=== PATIENT | female | born 1960 | race Caucasian/White ===

== ENCOUNTER 2017-06-30 08:20 | Observation (INO) | payer OTHER ==
[~2017-06-30] VITALS: Ht 157.5 cm; Wt 55.1 kg
[~2017-06-30 08:20] MED LIST: CALC600T34 PO; ESTR42.5V PV; GELNIQUE TOP; MAGNESIUM; NEUR600T PO; WELC625T2 PO
[2017-06-30] MEDS ORDERED: METOPROLOL TARTRATE 25 MG TAB PO PRN (09:00)
[2017-06-30] MEDS ORDERED: INSULIN HUMAN REGULAR 1,000 UNITS/10 ML VIAL SQ PRN (09:00)
[2017-06-30] MEDS ORDERED: LACTATED RINGER'S 1000 ML IV PRN (09:00)
[2017-06-30] MEDS ORDERED: POVIDONE IODINE 5% (ANTISEPSIS KIT) 4 APPLICATIONS EACH NARE PRN (09:00)
[2017-06-30] MEDS ORDERED: SODIUM CHLORID 0.9% 500 ML IV PRN (09:00)
[2017-06-30] MEDS ORDERED: CHLORHEXIDINE GLUCONATE 2 % 1 PACK (2 CLOTHS) TOPICAL PRN (09:00)
[2017-06-30] MEDS ORDERED: MULTTAB67 PO (09:10)
[2017-06-30] MEDS ORDERED: CRAN250C3 PO (09:10)
[2017-06-30] MEDS ORDERED: VITA100T65 PO (09:10)
[2017-06-30] MEDS ORDERED: VITA250T3 PO (09:10)
[2017-06-30] MEDS ORDERED: ONDANSETRON HCL 4 MG/2 ML VIAL IV PUSH SCH (09:15)
[2017-06-30] MEDS ORDERED: VANCOMYCIN HCL 1000 MG ON-CALL/NS 250 ML IV SCH ×2 (09:45)
[2017-06-30 11:08] VITALS: BP 144/88; PULSE 80; RESP 14; TEMP 97.6; O2SAT 99
--- NOTE | 2017-06-30 11:08 | RADRPT ---
EXAM DATE/TIME: 06/30/2017 10:30 [facility] COMPARISON: No previous studies available for comparison. INDICATIONS : Left breast cancer. DOSE: 1.0 mCi Tc99m Sulfur Colloid INJECTION SITE: Left Breast MEDICAL HISTORY : Carcinoma, breast. SURGICAL HISTORY : Hysterectomy. ENCOUNTER: Initial ACUITY: 1 month PAIN SCALE: 2/10 LOCATION: Left Breast. TECHNIQUE: Injection(s) of sulfur colloid was performed under sonographic guidance. Static imaging was obtained .. FINDINGS: There is activity identified at the injection sites without obvious sentinel node visualization. CONCLUSION: Lymphoscintigraphy as above. Shade Koch MD on June 30, 2017 at 11:06 Board Certified Radiologist. This report was verified electronically.
--- NOTE | 2017-06-30 11:40 | RADRPT ---
EXAM DATE/TIME: 06/30/2017 10:09 [facility] COMPARISON: No previous studies available for comparison. EXTERNAL COMPARISON : MG MAMMOGRAM-LEFT, April 28, 2017MR GUIDED BREAST BIOPSY- RIGHT, APRIL 28, 2017, TLI, MG MAMMOGRAM W/TO MOSYNTHESIS, MARCH 24, 2017, MG MAMMOGRAM POST BIOPSY, MARCH 06, 2017, OTHER, MG STEREOTACTIC BREAST BI OPSY March, OTHER, MG MAMMOGRAM LEFT, FEBRUARY 05, 2017, OTHER, MG SCREENING MAMMOGRAM, DECEMBER 26 017 INDICATIONS : Left breast cancer. MEDICAL HISTORY : Myocardial infarction. Left breast cancer. SURGICAL HISTORY : Hysterectomy. Left oophrectomy. [place] teeth extracted. ENCOUNTER: Initial ACUITY: 4-6 months PAIN SCORE: 0/10 LOCATION: Left breast. AREA EVALUATED: Left breast, mid quadrant; at 12 o'clock Radiopharmaceutical dose: 1.0 Tc99m [place] colloid FINDINGS: Breast ultrasound was performed prior to lymphoscintigraphy. The clip was not definitively visualize d however injection was performed at the expected location of the tissue marker with a vague area of shadowing at 12: 00 1-2 cm from the nipple. CONCLUSION: Lymphoscintigraphy was performed as above. Shade Koch MD on June 30, 2017 at 11:38 Board Certified Radiologist. This report was verified electronically.
[2017-06-30] MEDS ORDERED: ePHEDrine/NS 25 MG/5 ML SYR IV ONE (12:00)
[2017-06-30] MEDS ORDERED: LIDOCAINE HCL 1% PF 5 ML AMPULE OTHER ONE (12:00)
[2017-06-30] MEDS ORDERED: MIDAZOLAM HCL 2 MG/2 ML VIAL IV ONE (12:00)
[2017-06-30] MEDS ORDERED: GLYCOPYRROLATE 1 MG/5 ML SYRINGE IV PUSH ONE (12:00)
[2017-06-30] MEDS ORDERED: PROPOFOL 200 MG/20 ML AMP IV ONE (12:00)
[2017-06-30] MEDS ORDERED: DEXAMETHASONE SOD PHOS 4 MG/ML VIAL IV ONE (12:00)
[2017-06-30] MEDS ORDERED: ROCURONIUM INJ 50 MG/5 ML SYRINGE IV PUSH ONE (12:00)
[2017-06-30] MEDS ORDERED: ONDANSETRON HCL 4 MG/2 ML VIAL IV PUSH ONE (12:00)
[2017-06-30] MEDS ORDERED: NEOSTIGMINE 3 MG/3 ML SYR IV ONE (12:00)
[2017-06-30] MEDS ORDERED: VECURONIUM BROMIDE 20 MG VIAL IV ONE (12:00)
[2017-06-30] MEDS ORDERED: BUPIVACAINE/EPINEPHRINE 0.5% 50 ML VIAL ONE (12:28)
[2017-06-30] MEDS ORDERED: BUPIVACAINE HCL PF 0.25% 30 ML VIAL ONE (12:29)
[2017-06-30] MEDS ORDERED: SODIUM CHLORIDE 0.9% 20 ML VIAL ONE (12:29)
[2017-06-30] MEDS ORDERED: BUPIVACAINE HCL PF 0.5% 30 ML VIAL ONE (12:54)
[2017-06-30] MEDS ORDERED: FAMOTIDINE 20 MG/2 ML VIAL ONE (13:26)
[2017-06-30] MEDS ORDERED: ACETAMINOPHEN 1000 MG/100 ML 100 ML IV ONE (13:26)
[2017-06-30] MEDS ORDERED: GENTAMICIN SULFATE 80 MG/2 ML VIAL ONE (14:53)
[2017-06-30] MEDS ORDERED: ISOSULFAN BLUE 50 MG/5 ML VIAL SQ ONE (15:45)
[2017-06-30] MEDS ORDERED: *morphine SULFATE 8 MG/ML PERIprocedure ONLY ONE ×2 (17:00→17:19)
[2017-06-30] MEDS ORDERED: HYDROmorphone HCL PCA 6 MG/30 ML IV ONE (17:06)
[2017-06-30] MEDS ORDERED: NALOXONE HCL 0.4 MG/ML AMP IV PUSH PRN (17:45)
[2017-06-30] MEDS ORDERED: DO NOT ADM ANY ANTICOAGULANT DRUGS PRN (17:45)
[2017-06-30] MEDS ORDERED: HYDROmorphone HCL PCA 6 MG/30 ML IV SCH (17:45)
[2017-06-30 18:00] VITALS: BP 163/73; PULSE 87; RESP 20; TEMP 97; O2SAT 95
[2017-06-30] MEDS: LACTATED RINGER'S 1000 ML INJ 1,000 ML IV SCH (18:08)
[2017-06-30] MEDS: CLINDAMYCIN 600 MG/NS 100 ML IV SCH ×2 (18:48)
[2017-06-30 20:00] VITALS: BP 139/75; PULSE 86; RESP 18; TEMP 97.7; O2SAT 98
[2017-06-30 20:44] VITALS: RESP 18
[2017-06-30] MEDS: PCA - TOTAL MG DILAUDID DELIVERED PER SHIFT SCH (21:02)
[2017-06-30] MEDS: ONDANSETRON HCL 4 MG/2 ML VIAL IV PUSH PRN (22:22)
[2017-07-01] VITALS (7 sets, daily range): BP systolic 124–195; BP diastolic 71–87; PULSE 91–98; RESP 16–20; TEMP 97–98.9; O2SAT 95–100
[2017-07-01] MEDS: CLINDAMYCIN 600 MG/NS 100 ML IV SCH ×6 (00:31→12:14)
[2017-07-01] MEDS: LACTATED RINGER'S 1000 ML INJ 1,000 ML IV SCH ×2 (04:43→17:34)
[2017-07-01] MEDS: PCA - TOTAL MG DILAUDID DELIVERED PER SHIFT SCH ×3 (04:45→22:00)
[2017-07-01] MEDS: ONDANSETRON HCL 4 MG/2 ML VIAL IV PUSH PRN (07:55)
--- NOTE | 2017-07-01 07:56 | MP ---
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 PROCEDURE PERFORMED Skin sparing left mastectomy with left axillary sentinel lymph node biopsy and immediate tissue investigations manager reconstruction with AlloMax. SURGEON Luz Maria Shha MD and Mario Womack MD ANESTHESIA General via endotracheal INDICATION The patient is a 56-year-old female noted to have an area of ductal carcinoma in situ of the left breast. MRI revealed a separate area and this was biopsied and also found to be ductal carcinoma in situ. Because of multifocal disease, she opted for mastectomy with immediate reconstruction and now presents for the procedure. FINDINGS AT THE TIME OF SURGERY Moderate fibrocystic density was identified in the left breast. There was no gross evidence of malignant disease. Three sentinel lymph nodes were identified. #1 was 1+ blue and had a count of 2850 and #2 had a count of 63 and was not blue. #3 had a count of 672 and was not blue. Touch prep was not performed. PROCEDURE PERFORMED After informed consent was obtained and site verification was performed, the patient was brought to the major operating room after she went to the radiology suite where she underwent peritumoral radionuclide injection. General endotracheal anesthesia was induced and she received a single dose of IV vancomycin due to penicillin allergy. Sequential compression hose were placed. 3 cc of half-strength Lymphazurin were injected in the subareolar left breast and a 5-minute massage was performed. An inframammary crease incision was marked out and 100 cc of tumescent solution mixed with 30 cc of Marcaine with epinephrine were then infiltrated circumferentially around the breast in the plane between the anterior breast fascia and subcutaneous fat. Sharp dissection was performed in the same plane medially and laterally up to the level of the nipple. Electrocautery was then used to dissect the breast tissue away from the pectoralis muscle including the pectoralis fascia with the breast specimen and this was performed up to the level of the clavicle. The nipple was circumferentially dissected free from surrounding structures using sharp dissection and this was included with the breast specimen. Further sharp dissection was then performed superiorly in the medial and lateral planes in between the subcutaneous fat and anterior breast fascia. The breast was then amputated in the axilla and oriented with skin anterior, one short suture superiorly, and one long suture laterally. The specimen was weighed and sent for permanent pathologic evaluation. Some lateral tissue was sharply re-excised and sent as a separate permanent lateral margin specimen. A separate incision was then made at the inferior aspect of the left axillary hairline using electrocautery and sharp dissection until the clavipectoral fascia was divided and the level I axilla was entered. One sentinel lymph node was identified immediately in mid level I and this was circumferentially dissected free from surrounding structures using the harmonic scalpel with the count as noted. A separate more medial specimen was circumferentially dissected free from surrounding structures and this node had the count of 62. A very high level one lymph node near the junction of the pectoralis major and minor was then circumferentially dissected free from surrounding structures using the harmonic scalpel and this lymph node had a count of 672. Each node was sent separately as a permanent specimen and touch prep was not performed. Good hemostasis was noted in the axilla and in the breast along the chest wall and reconstruction was then performed which will be recorded on a separate dictation by Dr. Womack. MD JONE Cook/BRIAN /3:41 PM /7:36 AM
--- NOTE | 2017-07-01 08:10 | MP ---
cc: DEBBY BUTCHER M.D. DATE OF SURGERY 06/30/2017 PREOPERATIVE DIAGNOSIS Left breast cancer, patient for bilateral mastectomies. POSTOPERATIVE DIAGNOSIS Left breast cancer, patient for bilateral mastectomies. OPERATION 1. Left mastectomy with lymph node sampling by Dr. Omer 2. Right simple nipple sparing mastectomy Dr. Butcher 3. Bilateral breast reconstruction with AlloMax and tissue rewrite editor Dr. Butcher. SURGEON Dr. Omer and Dr. Butcher ANESTHESIA General INDICATIONS This 56-year-old white female was diagnosed with left breast ductal carcinoma in situ. She elected to go with bilateral mastectomies. The right side does not have any clinical disease. Mastectomy on the left was performed by Dr. Omer and it was an areolar sparing mastectomy. It will be dictated by her. The right side was a nipple sparing mastectomy after confirming the same with Dr. Omer from a mastectomy standpoint. The patient has undergone a detailed explanation of the procedure including pros, cons, risks and complication and immediate perioperative and long-term issues in detail. She is willing to proceed with the surgery. She initially had questions about possibly doing a one-stage versus two-stage reconstruction. Eventually she agreed to the two-stage reconstruction for better placement of the final implant in the long run. PROCEDURE The patient was brought to the operating room, was given supine position, anesthesia was started. A prep and drape was done. IV antibiotic had been given. Time-out was called and completed. The procedure was started on both sides simultaneously. The inframammary crease incisions were used. On the right side, the breast flap was developed all the way to the nipple and then the area of the breast tissue and ducts immediately under the nipple was grasped with an Allis forceps and was biopsied and sent for frozen section. The dissection was continued to complete the flap elevation to the upper half of the chest as well. The breast then was lifted from the pectoralis and chest wall fascia and mastectomy was completed removing the entire breast tissue. The specimen was suture marked superiorly and also a nipple short suture to indicate the location of the nipple base itself. The frozen section report issued indicated no obvious malignancy in the sample sent. Hemostasis was excellent. Also, the tumescent solution of Marcaine and saline has been used to help with the flap dissection. The left side mastectomy was also completed by Dr. Omer and the lymph node sampling was completed and lymph node access in the axillary incision was closed by Dr. Omer as well. The surgery was continued by myself from this point on. Both side subpectoral pockets were created. The inferior attachment of the pectoralis major muscle was released towards the medial end and AlloMax 8 x 16 grafts were hydrated and treated with gentamicin solution and placed one on each side smooth side towards the rewrite editor. The grafts were secured in the inframammary fold location about a centimeter above the inframammary fold and tacked at the anterior axillary line level as well. The expanders used were [employer] tissue rewrite editor catalogue number [id number]. The nominal capacity 300 cc. The serial number [id number] on the patient's right side, serial number [id number] on the patient's left side. The expanders were evacuated of all the air. The filling ports were oriented towards the 12 o'clock position and they were placed in the subpectoral location and the AlloMax was wrapped over the lower pole. The edge of the AlloMax was sutured to the free edge of the pectoralis major muscle as well. Ronald-Wilkins drains were inserted on both side and brought around in the subcutaneous flap location. Closure of the incisions was done with 2-0 and 3-0 Vicryl's and 4-0 Prolene subcuticular running sutures. On the left side, the nipple defect was also sutured in two layers. The expanders were filled with sterile saline using a three-way no-touch technique. 200 cc was injected on each side. All the area where cleaned and dried and a sterile dressing were applied. The patient remained stable through the procedure. Intraoperative blood loss less than 75 cc total. The tissue weight right side was 350 grams and left-sided 325 grams. No complications. signed, not fully reviewed MD JAMES Coughlin/BRIAN /4:47 PM /7:53 AM [facility]
--- NOTE | 2017-07-01 09:06 | HHI.PR ---
Subjective Subjective Notes Some nausea but tolerating liquids. Requiring GREEN MARKETER for pain control. Objective Vitals/I&O Vital Signs Date Time Temp Pulse Resp B/P (MAP) Pulse Ox O2 Delivery O2 Flow Rate FiO2 07/01/17 08:01 16 07/01/17 08:00 97.8 96 124/71 (88) 95 06/30/17 17:45 Nasal Cannula 2 Drain output 65cc left, 40 cc right. Narrative Exam Right chest wall flaps viable and nipple viable. No erythema or infection. Left central area with blue discoloration which is likely related to lymphazurin. No infection. A/P Problem List: (1) Ductal carcinoma in situ (DCIS) of left breast ICD Codes: D05.12 - Intraductal carcinoma in situ of left breast Status: Acute Assessment and Plan Still requiring IV analgesics. Encourage ambulation and oral analgesics. Anticipate discharge tomorrow. Luz Maria Omer MD Jul 01, 2017 09:06
--- NOTE | 2017-07-01 17:27 | PD.PLAS.PN ---
Subjective Remarks Patient doing well post op - pain is now under control with the meds was able to eat a little. Running high BP 190 systolic this evening - has never been on meds for bp Right side Breast - flaps look good No hematoma. EUGENIE drainage serosanguineous Left side - no hematoma. Flap center has a blue purple area of approx 2 cm x 1.8 cm on the upper outer aspect of the areola - may possibly demarcate over the next two to three days - to watch closely. May need excision and reclosure of the flap. The bankruptcy legal assistant volume is ok, no pressure on the flap. Also the EUGENIE drain is about 50 cc serosanguineous Will use temporary Vasotec - she can be referred to Dr. Caceres if needed in the morning. Or to the [facility] hospitalist austyn if the bp is not controlled. . Vital Signs Date Time Temp Pulse Resp B/P (MAP) Pulse Ox O2 Delivery O2 Flow Rate FiO2 07/01/17 16:00 98.8 91 20 195/87 (123) 97 07/01/17 14:00 16 07/01/17 12:00 97.0 92 19 190/83 (118) 95 07/01/17 08:01 16 07/01/17 08:00 97.8 96 20 124/71 (88) 95 07/01/17 04:45 19 07/01/17 04:00 98.9 98 18 148/73 (98) 95 07/01/17 00:00 97.5 95 18 163/81 (108) 100 06/30/17 21:02 18 06/30/17 20:44 18 06/30/17 20:00 97.7 86 18 139/75 (96) 98 06/30/17 18:00 97.0 87 20 163/73 (103) 95 06/30/17 17:45 73 13 161/70 (100) 100 Nasal Cannula 2 06/30/17 17:30 64 13 158/68 (98) 100 Nasal Cannula 2 I/O 06/30/17 06/30/17 06/30/17 07/01/17 07/01/17 07/01/17 07:00 15:00 23:00 07:00 15:00 23:00 Intake Total 1400 ml 1008 ml 224 ml Output Total 145 ml 260 ml Balance 1255 ml 748 ml 224 ml Intake Oral 240 ml 120 ml IV Total 768 ml 104 ml Other 1400 ml Output Urine Total 200 ml Drainage Total 45 ml 60 ml Estimated Blood Loss 100 ml # Bowel Movements 0 Mario Womack MD Jul 01, 2017 17:27
[2017-07-01] MEDS: ENALAPRILAT 1.25 MG/ML VIAL IV PUSH PRN (17:35)
[2017-07-01] MEDS: oxyCODONE/ACETAMINOPHEN 5 MG/325 MG TAB PO PRN ×2 (18:14→22:26)
[2017-07-02] VITALS: BP 167/72; PULSE 90; RESP 18; TEMP 98.5; O2SAT 94
[2017-07-02 04:00] VITALS: BP 170/78; PULSE 74; RESP 16; TEMP 98.5; O2SAT 95
[2017-07-02] MEDS: oxyCODONE/ACETAMINOPHEN 5 MG/325 MG TAB PO PRN ×3 (04:45→15:20)
[2017-07-02] MEDS: LACTATED RINGER'S 1000 ML INJ 1,000 ML IV SCH ×2 (04:45)
[2017-07-02] MEDS: PCA - TOTAL MG DILAUDID DELIVERED PER SHIFT SCH ×2 (04:49→12:33)
[2017-07-02 08:00] VITALS: BP 165/72; PULSE 95; RESP 20; TEMP 97.9; O2SAT 95
[2017-07-02] MEDS: ENALAPRILAT 1.25 MG/ML VIAL IV PUSH PRN (08:33)
[2017-07-02 09:47] VITALS: BP 142/65
[2017-07-02 12:00] VITALS: BP 135/71; PULSE 100; RESP 19; TEMP 96.9; O2SAT 95
[2017-07-02 16:00] VITALS: BP 136/64; PULSE 97; RESP 18; TEMP 97.3; O2SAT 98
--- NOTE | 2017-07-02 16:09 | HHI.PR ---
Subjective Subjective Notes Pain wellcontrolled on oral analgesics. Tolerating diet. Objective Vitals/I&O Vital Signs Date Time Temp Pulse Resp B/P (MAP) Pulse Ox O2 Delivery O2 Flow Rate FiO2 07/02/17 12:00 96.9 100 19 135/71 (92) 95 06/30/17 17:45 Nasal Cannula 2 Left drain 30cc, Right drain 30cc. Narrative Exam Right chest wall flaps viable and nipple viable. No erythema or infection. Left central area with 2 cm area lateral central ischemia. Dry and noninfected. A/P Problem List: (1) Ductal carcinoma in situ (DCIS) of left breast ICD Codes: D05.12 - Intraductal carcinoma in situ of left breast Status: Acute Assessment and Plan Doing well. D/C home. Followup with Dr. Womack Friday. Discharge Planning Discharge home today. Luz Maria Omer MD Jul 02, 2017 16:09
== END 2017-07-02 16:50 | disposition home or self-care (01) ==
LOC: HRAD 08:20 → N07B 18:10
PROVIDERS: ADMIT Surgery; ATTEND Surgery
DX: D05.12 Intraductal carcinoma in situ of left breast (principal)
CPT/HCPCS: 00402; 15273; 15274; 19303; 19357; 38525; 38900; 76642; 78195; 88305; 88307; 88309; 88331; 96361; 96374; 96375; 96376; A9541; C1789; G0378; J0131; J1100; J1170; J1580; J2250; J2270; J2405; J2710; J3010; J3370; J7050; J7120; Q4100; Q9968

== ENCOUNTER 2017-07-22 17:15 | Inpatient (IN) | payer OTHER ==
[~2017-07-22] VITALS: Ht 158.8 cm; Wt 56.5 kg
[~2017-07-22 17:15] MED LIST changes: +BACITRACIN TOP OINT 15 GM TUBE ONE; +BUPIVACAINE/EPINEPHRINE 0.5% 50 ML VIAL ONE; -CALC600T34 PO; +CRAN250C3 PO; -ESTR42.5V PV; +GLYCOPYRROLATE 1 MG/5 ML SYRINGE IV PUSH ONE; +LIDOCAINE 1%/EPINEPHrine 1:100,000 SOLN 50 ML VIAL ONE; +LIDOCAINE HCL 1% PF 5 ML AMPULE OTHER ONE; +MIDAZOLAM HCL 2 MG/2 ML VIAL IV ONE; +MULTTAB67 PO; +NEOSTIGMINE 3 MG/3 ML SYR IV ONE; -NEUR600T PO; +ONDANSETRON HCL 4 MG/2 ML VIAL IV PUSH ONE; +PHENYLEPH/NS 1000 MCG/10 ML SYR IV ONE; +PROPOFOL 200 MG/20 ML AMP IV ONE; +ROCURONIUM INJ 50 MG/5 ML SYRINGE IV PUSH ONE; +SODIUM BICARBONATE 8.4% INJ 0 ML ONE; +VITA100T65 PO; +VITA250T3 PO; -WELC625T2 PO
[2017-07-22] MEDS ORDERED: METOPROLOL TARTRATE 25 MG TAB PO PRN (17:45)
[2017-07-22] MEDS ORDERED: LACTATED RINGER'S 1000 ML IV PRN (17:45)
[2017-07-22] MEDS ORDERED: CHLORHEXIDINE GLUCONATE 2 % 1 PACK (2 CLOTHS) TOPICAL PRN (17:45)
[2017-07-22] MEDS ORDERED: SODIUM CHLORID 0.9% 500 ML IV PRN (17:45)
[2017-07-22] MEDS ORDERED: POVIDONE IODINE 5% (ANTISEPSIS KIT) 4 APPLICATIONS EACH NARE PRN (17:45)
[2017-07-22] MEDS ORDERED: INSULIN HUMAN REGULAR 1,000 UNITS/10 ML VIAL SQ PRN (17:45)
[2017-07-22] MEDS ORDERED: CEPH-460 PO (17:49)
[2017-07-22] MEDS ORDERED: FLAX10002 (17:49)
[2017-07-22] MEDS ORDERED: BIOT10TA PO (17:49)
[2017-07-22] MEDS ORDERED: LIDO1CRE31 TOPICAL (17:49)
[2017-07-22] MEDS ORDERED: COQ-30CA2 (17:49)
[2017-07-22] MEDS ORDERED: VENTAER INH (17:49)
[2017-07-22] MEDS ORDERED: HYDR-3516 PO (17:49)
[2017-07-22] MEDS ORDERED: FIBE625T10 PO (17:49)
[2017-07-22] MEDS ORDERED: ENZY1TAB2 (17:49)
[2017-07-22 18:13] LABS: AUTOMATED NEUTROPHIL # 4.4 TH/MM3 (1.8-7.7); BASOPHIL # 0.1 TH/MM3 (0-0.2); BASOPHIL % 1.2 % (0.0-2.0); EOSINOPHIL # 0.1 TH/MM3 (0-0.4); EOSINOPHIL % 1.8 % (0.0-4.0); HEMATOCRIT 32.3 % (35.0-46.0); HEMO FLAGS DIFF FINAL; LYMPH % 29.2 % (9.0-44.0); LYMPHOCYTE # 2.1 TH/MM3 (1.0-4.8); MEAN CELL VOLUME 76.8 FL (80.0-100.0); MEAN CORPUSCULAR HEMOGLOBIN 26.3 PG (27.0-34.0); MEAN CORPUSCULAR HGB CONC 34.2 % (32.0-36.0); MONO % 5.1 % (0.0-8.0); NEUT % 62.7 % (16.0-70.0); PLATELET COUNT 292 TH/MM3 (150-450); RED CELL DISTRIBUTION WIDTH 14.1 % (11.6-17.2); WHITE BLOOD COUNT 7.1 TH/MM3 (4.0-11.0)
[2017-07-22] MEDS ORDERED: GENTAMICIN SULFATE 80 MG/2 ML VIAL ONE (19:04)
[2017-07-22] MEDS ORDERED: VANCOMYCIN HCL 1000 MG VIAL ONE (19:04)
[2017-07-22] MEDS ORDERED: SUGAMMADEX SODIUM 200 MG/2 ML VIAL IV PUSH ONE ×2 (19:46)
[2017-07-22] MEDS ORDERED: *morphine SULFATE 8 MG/ML PERIprocedure ONLY ONE (20:06)
[2017-07-22] MEDS ORDERED: DO NOT ADM ANY ANTICOAGULANT DRUGS PRN (20:15)
[2017-07-22] MEDS ORDERED: ALBUTEROL SULFATE 90 MCG/ACT HFA 8 GM INHALER INH PRN (20:30)
[2017-07-22] MEDS ORDERED: LACTATED RINGER'S 1000 ML INJ 1,000 ML IV SCH (21:00)
--- NOTE | 2017-07-22 21:04 | MP ---
cc: DEBBY BUTCHER M.D. DATE OF SURGERY 07/22/2017 PREOPERATIVE DIAGNOSIS Right breast seroma with small necrotic flap. POSTOPERATIVE DIAGNOSIS Right breast seroma with small necrotic flap. OPERATION Exploration right breast drainage of approximately 60 mL. Seroma excision and reclosure of the necrotic flap and the lower flap. SURGEON Dr. Butcher ANESTHESIA General INDICATIONS A 56-year-old white female who has undergone bilateral mastectomies and tissue interlocker maintainer and AlloMax reconstruction in the last several weeks. She was noted to have small areas of patchy necrosis of superficial skin on the left breast and also near the inframammary incision on the right breast and was being watched for healing. While awaiting the expansion in the last four or five days she has noted increasing swelling on the right breast and some redness, particularly on the lower part extending slightly towards the areola. She has been mostly afebrile with a temperature of 99.4 yesterday at home. She had been placed on oral antibiotic by Dr. Omer earlier last week. The patient otherwise is feeling normal. She underwent discussion about draining the seroma and putting in a drain and watching it with IV antibiotic coverage for a few days while the culture report comes through. It may be possible that the interlocker maintainer may need to be removed and the AlloMax to be discarded as well in case if the culture comes back positive or if she has any clinical indications of increasing infection on the right side including local changes or WBC count change or fever. The patient has some mixed ideas about what she wants to do with the left side in case if the right side is being removed. She was given possible options of doing a right side reconstruction alone at a second stage if the interlocker maintainer needed to be removed while leaving the left side interlocker maintainer intact and using it to expand the soft tissue on the left in the meantime - or if she wished to remove both sides and do nothing or see if she wished to remove both sides, let it heal and start all over again on both sides. The possible pros and cons were also discussed. She will be given a second chance to decide a few days down the line while the right breast gets decided. PROCEDURE DETAILS The patient was brought to the operating room, was given supine position. Anesthesia was started. Prep and drape was done. A time-out was called and completed. The IV antibiotic had been held on purpose. The Prolene suture on the right breast was removed. The area of necrosis is noted to be actually slightly above the incision line itself, leaving a 2-3 mm clear healing skin on the incision line. This area was gently spread open and the Vicryl sutures were removed. A liquid yellowish seroma approximately 60 mL was encountered. A few cc were allowed to escape and a culture sample was taken from the seroma and the cavity at the same time. The incision was opened up going on either side of the necrotic area for a total length of 2 inches. The seroma was easily evacuated with gentle pressure. No mucus or necrotic tissue was encountered. The area of the skin flap under the black skin did not show any fatty necrosis either. The cavity was copiously irrigated clean with gentamicin solution. She was also started on the IV Vancomycin at the same time. A Ronald-Wilkins drain was inserted through a separate clean stab incision and secured to the skin. The flap and incision line was closed in two layers with Vicryl and Prolene. The patient remained stable through the procedure. Intraoperative blood loss less than 2 mL. No complication. It was also noted that the upper part of the breast flap had become well adherent to the pectoralis major muscle and there was no seroma up on the top. The AlloMax also was in good condition and no seroma was noted between the AlloMax and the interlocker maintainer itself. The interlocker maintainer could be easily felt through the AlloMax. signed, not fully reviewed MD JAMES Coughlin/ZION /7:51 PM /8:29 PM [facility]
[2017-07-22 21:40] VITALS: BP 127/69; PULSE 81; RESP 18; TEMP 98.6; O2SAT 99
[2017-07-22] MEDS: HYDROmorphone HCL PF 0.5 MG/0.5 ML SYRINGE IV PRN (22:31)
[2017-07-22] MEDS: LACTATED RINGER'S 1000 ML INJ 1,000 ML IV SCH (22:31)
[2017-07-22] MEDS: CLINDAMYCIN 600 MG/NS 100 ML IV SCH ×2 (22:58)
[2017-07-23] VITALS (7 sets, daily range): BP systolic 108–148; BP diastolic 57–80; PULSE 78–89; RESP 16–18; TEMP 97.9–98.9; O2SAT 95–99
[2017-07-23] MEDS: HYDROmorphone HCL PF 0.5 MG/0.5 ML SYRINGE IV PRN ×2 (03:59→09:27)
[2017-07-23] MEDS: LACTATED RINGER'S 1000 ML INJ 1,000 ML IV SCH ×2 (05:29→17:00)
[2017-07-23] MEDS: CLINDAMYCIN 600 MG/NS 100 ML IV SCH ×6 (05:29→21:15)
--- NOTE | 2017-07-23 13:05 | PD.PLAS.PN ---
Subjective Remarks Patein feeling much better. Minimal pain, no fever, not feeling tired Right breast soft, flap color nearly normal - most of the redness is gone Not warm Drain - clearing up a bit. Gram stain no bacteria Awaiting ID consult. Plan: Wait till culture reports received - possible discharge tomorrow gil or next am. Vital Signs Date Time Temp Pulse Resp B/P (MAP) Pulse Ox O2 Delivery O2 Flow Rate FiO2 07/23/17 08:00 97.9 89 17 108/66 (80) 97 07/23/17 04:00 98.6 87 18 118/68 (85) 97 07/23/17 00:00 97.9 82 18 124/74 (91) 97 07/22/17 21:40 98.6 81 18 127/69 (88) 99 07/22/17 21:15 80 15 135/65 (88) 98 Room Air 07/22/17 20:45 76 13 135/65 (88) 99 Room Air 07/22/17 20:30 81 19 141/64 (89) 99 Room Air 07/22/17 20:15 91 24 149/55 (86) 94 Room Air 07/22/17 19:57 97.7 98 24 153/93 (113) 100 Room Air 07/22/17 18:45 Room Air 07/22/17 18:45 75 20 171/86 (114) 95 07/22/17 17:54 98.4 92 18 154/86 (108) 99 I/O 07/22/17 07/22/17 07/22/17 07/23/17 07/23/17 07/23/17 07:00 15:00 23:00 07:00 15:00 23:00 Intake Total 1000 ml 1928 ml Output Total 25 ml 30 ml 1200 ml Balance 975 ml 1898 ml -1200 ml Intake Oral 720 ml IV Total 1208 ml Other 1000 ml Output Urine Total 1200 ml Drainage Total 30 ml Estimated Blood Loss 25 ml # Voids 2 Laboratory Tests Test 07/22/17 18:00 White Blood Count 7.1 Red Blood Count 4.20 Hemoglobin 11.1 Hematocrit 32.3 Mean Corpuscular Volume 76.8 Mean Corpuscular Hemoglobin 26.3 Mean Corpuscular Hemoglobin Concent 34.2 Red Cell Distribution Width 14.1 Platelet Count 292 Mean Platelet Volume 9.2 Neutrophils (%) (Auto) 62.7 Lymphocytes (%) (Auto) 29.2 Monocytes (%) (Auto) 5.1 Eosinophils (%) (Auto) 1.8 Basophils (%) (Auto) 1.2 Neutrophils # (Auto) 4.4 Lymphocytes # (Auto) 2.1 Monocytes # (Auto) 0.4 Eosinophils # (Auto) 0.1 Basophils # (Auto) 0.1 CBC Comment DIFF FINAL Differential Comment Date/Time Source Procedure Growth Status 07/22/17 19:30 Wound Breast Fungal Smear - Final NO FUNGAL ELEMENTS SEEN. Resulted 07/22/17 19:30 Wound Breast Fungal Culture Pending Resulted Result Diagram: 07/22/17 1800 Mario Womack MD Jul 23, 2017 13:05
--- NOTE | 2017-07-23 14:06 | EKG ---
Date Performed: 07/22/2017 Time Performed: 18:00:43 PTAGE: 56 years EKG: Sinus rhythm INCOMPLETE RIGHT BUNDLE BRANCH BLOCK BORDERLINE ECG PREVIOUS TRACING : 07/23/2010 15.00 DOCTOR: Andrés Francis Interpretating Date/Time 07/23/2017 13:58:04
--- NOTE | 2017-07-23 14:09 | PD.CONS ---
History of Present Illness Service infectious disease Consult Requested By Dr. Womack Reason for Consult Evaluate patient with swelling on the right breast Primary Care Physician Non-Staff Diagnoses: History of Present Illness Patient seen and examined. Records reviewed. Patient is a 56-year-old female, diagnosed to have breast cancer, underwent definitive surgery the end of June, admitted to the hospital for further evaluation of swelling on her right breast. The original breast cancer was on the left side, they did surgery on both breast, and placed a tissue chief building inspector. When she was discharged she had drains in both breasts. The drain was removed after about 7-10 days. About a week after the surgery, the patient was placed on Keflex by the surgeon. She has been taking Keflex since up until the time of admission. The drains were removed, patient has had intermittent drainage from the drain sites especially on the right side. A week prior to admission, she developed swelling and redness on her right breast. It was being monitored closely, and it was decided to bring the patient for further evaluation and treatment. She had one episode of low-grade temps during this time. Since admission she has not been febrile. White count is normal. Patient underwent drainage of seroma yesterday. Gram stain of the fluid did not show any organism , and culture is negative after 24 hours. Infectious disease consultation has been requested to evaluate the patient. Patient received Vanco perioperatively, and she is currently on IV clindamycin. Review of Systems Constitutional: DENIES: Fever, Chills, Change in appetite, Night Sweats Eyes: DENIES: Eye pain Ears, nose, mouth, throat: DENIES: Nasal discharge, Oral lesions, Throat pain, Ear Pain, Running Nose, Sinus Pain Respiratory: DENIES: Cough, Shortness of breath Cardiovascular: DENIES: Chest pain, Palpitations, Dyspnea on Exertion Gastrointestinal: DENIES: Abdominal pain, Constipation, Diarrhea, Nausea, Vomiting, Difficulty Swallowing Genitourinary: DENIES: Urinary frequency, Dysuria Musculoskeletal: DENIES: Joint pain, Muscle aches, Joint Swelling Integumentary: COMPLAINS OF: Breast skin changes, DENIES: Nipple discharge Hematologic/lymphatic: COMPLAINS OF: Bruising Immunologic/allergic: DENIES: Urticaria Neurologic: DENIES: Localized weakness Psychiatric: DENIES: Hallucinations Past Family Social History Allergies: Coded Allergies: amoxicillin (Unverified Allergy, Severe, RASH, HIVES, 06/30/17) azithromycin (Unverified Allergy, Severe, ITCHING, RASH, 06/30/17) Sulfa (Sulfonamide Antibiotics) (Unverified Adverse Reaction, Mild, LIGHTHEADED, 07/22/17) Past Medical History 2 para 2 Breast cancer left Cataracts Osteoporosis CAD Past Surgical History Hysterectomy and salpingo-oophorectomy Carpal tunnel release Mastectomy and placement of a tissue chief building inspector Reported Medications I attest that I obtained, updated or reviewed the home and current medications. Reported Meds & Active Scripts Active Reported Ventolin Hfa 18 GM Inh (Albuterol Sulfate) 90 Mcg/Act Aer 1 Puff INH Q4H PRN Lidopril Topical (Lidocaine-Prilocaine Topical) 2.5-2.5 % Cream 1 Applic TOPICAL BID PRN Hydrocodone-Acetaminophen 5-325 mg Tab 1 Tab PO Q4H PRN Flax Seed Oil 1000 mg (Flaxseed (Linseed)) 1,000 Mg Cap Fiber (Calcium Polycarbophil) 625 Mg Tab 625 Mg PO PRN Digestive Enzyme (Enzymes,Digestive) 1 Each Tablet Coq-10 (Coenzyme Q10 (Ubidecarenone)) 30 Mg Cap 10 DAILY Keflex (Cephalexin) 500 Mg Capsule 500 Mg PO QID Biotin 10 Mg Tab 10 Mg PO DAILY Cranberry (Cranberry Fruit Extract) 250 Mg Capsule 250 Mg PO DAILY Vitamin E 100 Unit Tab 100 Units PO DAILY Vitamin C (Ascorbic Acid) 250 Mg Tab 250 Mg PO DAILY Multiple Vitamin 1 Tab 1 Tab PO DAILY [Magnesium] BID Active Ordered Medications Clindamycin IV Albuterol prn Dilaudid prn INsulin sliding scale Lopressor prn Percocet prn Family History Noncontributory to current ID problem Social History No smoking No alcohol abuse No illicit drugs Physical Exam Vital Signs Vital Signs Date Time Temp Pulse Resp B/P (MAP) Pulse Ox O2 Delivery O2 Flow Rate FiO2 07/23/17 12:00 98.0 87 16 109/57 (74) 96 07/23/17 08:00 97.9 89 17 108/66 (80) 97 07/23/17 04:00 98.6 87 18 118/68 (85) 97 07/23/17 00:00 97.9 82 18 124/74 (91) 97 07/22/17 21:40 98.6 81 18 127/69 (88) 99 07/22/17 21:15 80 15 135/65 (88) 98 Room Air 07/22/17 20:45 76 13 135/65 (88) 99 Room Air 07/22/17 20:30 81 19 141/64 (89) 99 Room Air 07/22/17 20:15 91 24 149/55 (86) 94 Room Air 07/22/17 19:57 97.7 98 24 153/93 (113) 100 Room Air 07/22/17 18:45 Room Air 07/22/17 18:45 75 20 171/86 (114) 95 07/22/17 17:54 98.4 92 18 154/86 (108) 99 Physical Exam GENERAL: Patient is a well-nourished, well-developed CF, awake and alert, not in respiratory distress. SKIN: Warm and dry. No generalized rash, no ecchymoses and no evidence of embolic lesions. HEAD: Atraumatic. Normocephalic. No temporal wasting, or tenderness. EYES: [place] conjunctiva. No petechia or hemorrhage. Pupils equal, round and reactive to light. Extraocular movements full and intact. No scleral icterus. No injection or drainage. EARS, NOSE AND THROAT: Nose without bleeding or purulent nasal discharge. No sinus tenderness. Mucous membranes pink and moist. No oral lesions noted. No exudate. No oral thrush. NECK: Trachea midline. Supple and not tender, no meningeal signs CARDIOVASCULAR: Regular rate and rhythm. No murmurs, rubs or gallops heard RESPIRATORY: Clear to auscultation. Breath sounds equal bilaterally. No rales , wheezing or rhonchi BREASTS: L breast, incision dry, no redness. R breast - larger than L, indurated at inferior portion, with very faint pink color, EUGENIE drain in place with serosanguineous fluid, incision dry ABDOMEN: Soft, non-tender, nondistended. Bowel sounds present and normoactive. No guarding. No rebound. No organomegaly. EXTREMITIES: No clubbing, cyanosis, or edema.No joint effusion, has good ROM. No calf tenderness. Well perfused and warm. NEUROLOGICAL: Awake and alert. Cranial nerves grossly intact. Motor grossly within normal limits. PSYCHIATRIC: Normal affect, calm and cooperative. LINE: No evidence of infection Laboratory Laboratory Tests Test 07/22/17 18:00 White Blood Count 7.1 Red Blood Count 4.20 Hemoglobin 11.1 Hematocrit 32.3 Mean Corpuscular Volume 76.8 Mean Corpuscular Hemoglobin 26.3 Mean Corpuscular Hemoglobin Concent 34.2 Red Cell Distribution Width 14.1 Platelet Count 292 Mean Platelet Volume 9.2 Neutrophils (%) (Auto) 62.7 Lymphocytes (%) (Auto) 29.2 Monocytes (%) (Auto) 5.1 Eosinophils (%) (Auto) 1.8 Basophils (%) (Auto) 1.2 Neutrophils # (Auto) 4.4 Lymphocytes # (Auto) 2.1 Monocytes # (Auto) 0.4 Eosinophils # (Auto) 0.1 Basophils # (Auto) 0.1 CBC Comment DIFF FINAL Differential Comment Date/Time Source Procedure Growth Status 07/22/17 19:30 Wound Breast Fungal Smear - Final NO FUNGAL ELEMENTS SEEN. Resulted 07/22/17 19:30 Wound Breast Fungal Culture Pending Resulted Result Diagram: 07/22/17 1800 Assessment and Plan Assessment and Plan IMPRESSION Cellulitis R breast, with seroma, ?infected - C/Sngeative, /due to Keflex patient has been taking x 2 weeks S/P haylee mastectomy and placement of tissue chief building inspector L breast CA Severe allergy to Bactrim GI intolerance with amoxicillin rash with Azithromycin RECOMMENDATION Continue IV Clinda Follow C/S Difficult to make conclusions on C/S results due to prior Abx use Give at least one week of po Clinda on discharge if C/S negative If C/S (+), adjust Abx based on C/S results Probiotic Thank you for this consultation Discussed Condition With Explained plan to patient and D/W Hillary Li MD Jul 23, 2017 14:09
[2017-07-23] MEDS: oxyCODONE/ACETAMINOPHEN 5 MG/325 MG TAB PO PRN ×2 (14:13→18:36)
[2017-07-24 00:30] VITALS: BP 109/67; PULSE 77; RESP 18; TEMP 97.8; O2SAT 98
[2017-07-24] MEDS: LACTATED RINGER'S 1000 ML INJ 1,000 ML IV SCH ×3 (03:00→22:52)
[2017-07-24] MEDS: CLINDAMYCIN 600 MG/NS 100 ML IV SCH ×6 (05:21→22:30)
[2017-07-24] MEDS: oxyCODONE/ACETAMINOPHEN 5 MG/325 MG TAB PO PRN ×4 (05:30→22:30)
[2017-07-24 08:00] VITALS: BP 112/68; PULSE 78; RESP 16; TEMP 97.9; O2SAT 96
[2017-07-24 11:16] VITALS: BP 102/59; PULSE 80; RESP 16; TEMP 97.2; O2SAT 97
--- NOTE | 2017-07-24 13:11 | PD.PLAS.PN ---
Subjective Remarks Patient stable, feeling better, no local changes on the breast area reported OK to keep present dressing on. Afebrile. Culture preliminary showing Enterobacter. 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 Will also get a follow up CBC today Vital Signs Date Time Temp Pulse Resp B/P (MAP) Pulse Ox O2 Delivery O2 Flow Rate FiO2 07/24/17 11:16 97.2 80 16 102/59 (73) 97 07/24/17 08:00 97.9 78 16 112/68 (83) 96 07/24/17 00:30 97.8 77 18 109/67 (81) 98 07/23/17 20:59 98.3 78 18 148/80 (102) 99 07/23/17 18:18 95 21 07/23/17 16:00 98.9 81 18 119/70 (86) 95 I/O 07/23/17 07/23/17 07/23/17 07/24/17 07/24/17 07/24/17 07:00 15:00 23:00 07:00 15:00 23:00 Intake Total 1928 ml 2324 ml 100 ml Output Total 30 ml 1200 ml 900 ml 905 ml Balance 1898 ml -1200 ml 1424 ml -805 ml Intake Oral 720 ml 1420 ml IV Total 1208 ml 904 ml 100 ml Output Urine Total 1200 ml 900 ml 900 ml Drainage Total 30 ml 5 ml # Voids 2 # Bowel Movements 0 1 Date/Time Source Procedure Growth Status 07/22/17 19:30 Wound Breast Fungal Smear - Final NO FUNGAL ELEMENTS SEEN. Resulted 07/22/17 19:30 Wound Breast Fungal Culture Pending Resulted Result Diagram: 07/22/17 1800 Mario Womack MD Jul 24, 2017 13:11
--- NOTE | 2017-07-24 14:39 | HHI.IDPN ---
Subjective Subjective Remarks Patient is a 56-year-old female, diagnosed to have breast cancer, underwent definitive surgery the end of June, admitted to the hospital for further evaluation of swelling on her right breast. The original breast cancer was on the left side, they did surgery on both breast, and placed a tissue utility aide. When she was discharged she had drains in both breasts. The drain was removed after about 7-10 days. About a week after the surgery, the patient was placed on Keflex by the surgeon. She has been taking Keflex since up until the time of admission. The drains were removed, patient has had intermittent drainage from the drain sites especially on the right side. A week prior to admission, she developed swelling and redness on her right breast. It was being monitored closely, and it was decided to bring the patient for further evaluation and treatment. She had one episode of low-grade temps during this time. Since admission she has not been febrile. White count is normal. Patient underwent drainage of seroma yesterday. Gram stain of the fluid did not show any organism , and culture is negative after 24 hours. Infectious disease consultation has been requested to evaluate the patient. Patient received Vanco perioperatively, and she is currently on IV clindamycin. Notes reviewed temps ok OR C/S Enterobacter and GP [place] NO diarrhea NO N/V NO rash or itching Antibiotics I attest that I obtained, updated or reviewed the home and current medications. Clindamycin Current Medications Medications (Trade) Dose Ordered Sig/Angel Route Start Time Stop Time Status Last Admin Lactated Ringer's 1,000 ml @ 30 mls/hr Q24H PRN IV 07/22/17 17:45 07/25/17 17:44 Sodium Chloride 500 ml @ 30 mls/hr [id number] PRN IV 07/22/17 17:45 07/25/17 17:44 (Lopressor) 25 mg RESIDENTIAL TREATMENT COUNSELOR PRN PO 07/22/17 17:45 07/25/17 17:44 (Betadine 5% Antisepsis Kit) 1 applic RESIDENTIAL TREATMENT COUNSELOR PRN EACH NARE 07/22/17 17:45 07/25/17 17:44 (Chlorhexidine 2% Cloth) 3 pack RESIDENTIAL TREATMENT COUNSELOR PRN TOPICAL 07/22/17 17:45 07/25/17 17:44 (NovoLIN R INJ) See Protocol Table ... RESIDENTIAL TREATMENT COUNSELOR PRN SQ 07/22/17 17:45 07/25/17 17:44 Lactated Ringer's 1,000 ml @ 100 mls/hr Q10H IV 07/22/17 21:00 07/23/17 05:29 Clindamycin Phosphate 600 mg/ Sodium Chloride 104 ml @ 208 mls/hr Q8H IV 07/22/17 22:00 07/24/17 14:32 (Dilaudid Pf Inj) 0.5 mg Q4H PRN IV 07/22/17 20:30 07/23/17 09:27 (Percocet 5-325 Mg) 1 tab Q4H PRN PO 07/22/17 20:30 07/24/17 11:20 (Proair Hfa Inh) 1 puff Q4H PRN INH 07/22/17 20:30 Cefepime HCl 2000 mg/Sodium Chloride 100 ml @ 200 mls/hr Q12H IV 07/24/17 15:00 Lines PIV Past Medical History 2 para 2 Breast cancer left Cataracts Osteoporosis CAD Past Surgical History Hysterectomy and salpingo-oophorectomy Carpal tunnel release Mastectomy and placement of a tissue utility aide Allergies: Coded Allergies: amoxicillin (Unverified Allergy, Severe, RASH, HIVES, 06/30/17) azithromycin (Unverified Allergy, Severe, ITCHING, RASH, 06/30/17) Sulfa (Sulfonamide Antibiotics) (Unverified Adverse Reaction, Mild, LIGHTHEADED, 07/22/17) Objective . Vital Signs Date Time Temp Pulse Resp B/P (MAP) Pulse Ox O2 Delivery O2 Flow Rate FiO2 07/24/17 14:15 07/24/17 11:16 97.2 80 16 102/59 (73) 97 07/24/17 08:00 97.9 78 16 112/68 (83) 96 07/24/17 00:30 97.8 77 18 109/67 (81) 98 07/23/17 20:59 98.3 78 18 148/80 (102) 99 07/23/17 18:18 95 21 07/23/17 16:00 98.9 81 18 119/70 (86) 95 . Laboratory Tests Test 07/22/17 18:00 White Blood Count 7.1 TH/MM3 Red Blood Count 4.20 MIL/MM3 Hemoglobin 11.1 GM/DL Hematocrit 32.3 % Mean Corpuscular Volume 76.8 FL Mean Corpuscular Hemoglobin 26.3 PG Mean Corpuscular Hemoglobin Concent 34.2 % Red Cell Distribution Width 14.1 % Platelet Count 292 TH/MM3 Mean Platelet Volume 9.2 FL Neutrophils (%) (Auto) 62.7 % Lymphocytes (%) (Auto) 29.2 % Monocytes (%) (Auto) 5.1 % Eosinophils (%) (Auto) 1.8 % Basophils (%) (Auto) 1.2 % Neutrophils # (Auto) 4.4 TH/MM3 Lymphocytes # (Auto) 2.1 TH/MM3 Monocytes # (Auto) 0.4 TH/MM3 Eosinophils # (Auto) 0.1 TH/MM3 Basophils # (Auto) 0.1 TH/MM3 CBC Comment DIFF FINAL Differential Comment Microbiology Date/Time Source Procedure Growth Status 07/22/17 19:30 Wound Breast Fungal Smear - Final NO FUNGAL ELEMENTS SEEN. Resulted 07/22/17 19:30 Wound Breast Fungal Culture Pending Resulted 07/22/17 19:30 Wound Breast Acid Fast Stain - Final NO ACID FAST BACILLI SEEN Resulted 07/22/17 19:30 Wound Breast Mycobacterial Culture Pending Resulted 07/22/17 19:30 Wound Breast Gram Stain - Final Resulted 07/22/17 19:30 Wound Culture - Preliminary Enterobacter Aerogenes Resulted Physical Exam GENERAL: awake and alert, not in respiratory distress. SKIN: Warm and dry. No generalized rash, no ecchymoses and no evidence of embolic lesions. HEAD: Atraumatic. Normocephalic. No temporal wasting, or tenderness. EYES: [place] conjunctiva. No petechia or hemorrhage. Pupils equal, round and reactive to light. Extraocular movements full and intact. No scleral icterus. No injection or drainage. EARS, NOSE AND THROAT: Nose without bleeding or purulent nasal discharge. No sinus tenderness. Mucous membranes pink and moist. No oral lesions noted. NECK: Trachea midline. Supple and not tender, no meningeal signs CARDIOVASCULAR: Regular rate and rhythm. No murmurs, rubs or gallops heard RESPIRATORY: Clear to auscultation. Breath sounds equal bilaterally. No rales , wheezing or rhonchi BREASTS: L breast, incision dry, no redness. R breast - larger than L, improving induration at inferior portion, erythema gone, EUGENIE drain in place with serosanguineous fluid, incision dry ABDOMEN: Soft, non-tender, nondistended. Bowel sounds present and normoactive. No guarding. No rebound. No organomegaly. EXTREMITIES: No clubbing, cyanosis, or edema.No joint effusion, has good ROM. No calf tenderness. Well perfused and warm. NEUROLOGICAL: Awake and alert. Cranial nerves grossly intact. Motor grossly within normal limits. PSYCHIATRIC: Normal affect, calm and cooperative. LINE: No evidence of infection Assessment & Plan Remarks IMPRESSION Cellulitis R breast, with infected seroma - C/S with Enterobacter and Gm positive [place] S/P haylee mastectomy and placement of tissue utility aide L breast CA Severe allergy to Bactrim GI intolerance with amoxicillin rash with Azithromycin RECOMMENDATION Continue IV Clinda Add IV cefepime to cover Enterobacter May be difficult to clear infection because of foreign material ion her R breast Follow C/S and adjust Abx based on results Monitor progress Explained plan to patient D/W Dr Womack earlier today Hillary Queen MD Jul 24, 2017 14:39
[2017-07-24] MEDS: CEFEPIME INJ 2,000 MG in SODIUM CHLORIDE 0.9% INJ 100 ML IV SCH (15:00)
[2017-07-24 16:00] VITALS: BP 118/67; PULSE 84; RESP 16; TEMP 98.5; O2SAT 98
[2017-07-24] MEDS: LACTOBACILLUS ACIDOPHILUS TAB PO SCH (17:16)
[2017-07-24 20:00] VITALS: BP 122/70; PULSE 90; RESP 20; TEMP 99.1; O2SAT 96
[2017-07-24 21:07] LABS: AUTOMATED NEUTROPHIL # 2.1 TH/MM3 (1.8-7.7); BASOPHIL % 0.8 % (0.0-2.0); EOSINOPHIL # 0.3 TH/MM3 (0-0.4); EOSINOPHIL % 5.3 % (0.0-4.0); HEMATOCRIT 31.2 % (35.0-46.0); HEMO FLAGS DIFF FINAL; LYMPH % 41.1 % (9.0-44.0); LYMPHOCYTE # 1.9 TH/MM3 (1.0-4.8); MEAN CELL VOLUME 77.3 FL (80.0-100.0); MEAN CORPUSCULAR HEMOGLOBIN 25.2 PG (27.0-34.0); MEAN CORPUSCULAR HGB CONC 32.6 % (32.0-36.0); MONO % 8.1 % (0.0-8.0); NEUT % 44.7 % (16.0-70.0); PLATELET COUNT 237 TH/MM3 (150-450); RED BLOOD COUNT 4.03 MIL/MM3 (4.00-5.30); RED CELL DISTRIBUTION WIDTH 14.5 % (11.6-17.2); WHITE BLOOD COUNT 4.7 TH/MM3 (4.0-11.0)
[2017-07-25] VITALS: BP 112/65; PULSE 74; RESP 18; TEMP 97.4; O2SAT 96
[2017-07-25] MEDS: CEFEPIME INJ 2,000 MG in SODIUM CHLORIDE 0.9% INJ 100 ML IV SCH ×2 (03:41→14:30)
[2017-07-25] MEDS: CLINDAMYCIN 600 MG/NS 100 ML IV SCH ×6 (05:19→22:00)
[2017-07-25 08:00] VITALS: BP 175/83; PULSE 85; RESP 16; TEMP 96.6; O2SAT 100
[2017-07-25] MEDS: LACTATED RINGER'S 1000 ML INJ 1,000 ML IV SCH (08:10)
[2017-07-25] MEDS: LACTOBACILLUS ACIDOPHILUS TAB PO SCH ×3 (08:11→18:00)
[2017-07-25] MEDS: oxyCODONE/ACETAMINOPHEN 5 MG/325 MG TAB PO PRN (08:15)
[2017-07-25 12:00] VITALS: BP_SYST 118; BP_SYST 91; BP_DIAS 52; BP_DIAS 71; PULSE 83; RESP 20; TEMP 97.5; O2SAT 97
[2017-07-25] MEDS ORDERED: GLYCOPYRROLATE 1 MG/5 ML SYRINGE IV PUSH ONE (12:00)
[2017-07-25] MEDS ORDERED: ROCURONIUM INJ 50 MG/5 ML SYRINGE IV PUSH ONE (12:00)
[2017-07-25] MEDS ORDERED: PROPOFOL 200 MG/20 ML AMP IV ONE (12:00)
[2017-07-25] MEDS ORDERED: ONDANSETRON HCL 4 MG/2 ML VIAL IV PUSH ONE (12:00)
[2017-07-25] MEDS ORDERED: LIDOCAINE HCL 1% PF 5 ML AMPULE OTHER ONE (12:00)
[2017-07-25] MEDS ORDERED: NEOSTIGMINE 3 MG/3 ML SYR IV ONE (12:00)
--- NOTE | 2017-07-25 15:29 | PD.PLAS.PN ---
Subjective Remarks Patient stable. 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 OK to schedule for surgery tonight. She did have a light lunch this afternoon. Vital Signs Date Time Temp Pulse Resp B/P (MAP) Pulse Ox O2 Delivery O2 Flow Rate FiO2 07/25/17 12:00 97.5 83 20 118/71 (87) 97 07/25/17 09:15 18 07/25/17 08:00 96.6 85 16 175/83 (113) 100 07/25/17 00:00 97.4 74 18 112/65 (81) 96 07/24/17 20:00 99.1 90 20 122/70 (87) 96 07/24/17 16:00 98.5 84 16 118/67 (84) 98 I/O 07/24/17 07/24/17 07/24/17 07/25/17 07/25/17 07/25/17 07:00 15:00 23:00 07:00 15:00 23:00 Intake Total 100 ml 680 ml 584 ml Output Total 905 ml 1808 ml 1800 ml Balance -805 ml -1128 ml -1216 ml Intake Oral 480 ml 480 ml IV Total 100 ml 200 ml 104 ml Output Urine Total 900 ml 1800 ml 1800 ml Drainage Total 5 ml 8 ml # Bowel Movements 1 1 0 Laboratory Tests Test 07/24/17 18:49 White Blood Count 4.7 Red Blood Count 4.03 Hemoglobin 10.2 Hematocrit 31.2 Mean Corpuscular Volume 77.3 Mean Corpuscular Hemoglobin 25.2 Mean Corpuscular Hemoglobin Concent 32.6 Red Cell Distribution Width 14.5 Platelet Count 237 Mean Platelet Volume 9.1 Neutrophils (%) (Auto) 44.7 Lymphocytes (%) (Auto) 41.1 Monocytes (%) (Auto) 8.1 Eosinophils (%) (Auto) 5.3 Basophils (%) (Auto) 0.8 Neutrophils # (Auto) 2.1 Lymphocytes # (Auto) 1.9 Monocytes # (Auto) 0.4 Eosinophils # (Auto) 0.3 Basophils # (Auto) 0.0 CBC Comment DIFF FINAL Differential Comment Date/Time Source Procedure Growth Status 07/22/17 19:30 Wound Breast Fungal Smear - Final NO FUNGAL ELEMENTS SEEN. Resulted 07/22/17 19:30 Wound Breast Fungal Culture Pending Resulted Result Diagram: 07/24/17 1849 Mario Womack MD Jul 25, 2017 15:29
--- NOTE | 2017-07-25 15:56 | HHI.IDPN ---
Subjective Subjective Remarks Patient is a 56-year-old female, diagnosed to have breast cancer, underwent definitive surgery the end of June, admitted to the hospital for further evaluation of swelling on her right breast. The original breast cancer was on the left side, they did surgery on both breast, and placed a tissue workforce development vice president. When she was discharged she had drains in both breasts. The drain was removed after about 7-10 days. About a week after the surgery, the patient was placed on Keflex by the surgeon. She has been taking Keflex since up until the time of admission. The drains were removed, patient has had intermittent drainage from the drain sites especially on the right side. A week prior to admission, she developed swelling and redness on her right breast. It was being monitored closely, and it was decided to bring the patient for further evaluation and treatment. She had one episode of low-grade temps during this time. Since admission she has not been febrile. White count is normal. Patient underwent drainage of seroma yesterday. Gram stain of the fluid did not show any organism , and culture is negative after 24 hours. Infectious disease consultation has been requested to evaluate the patient. Patient received Vanco perioperatively, and she is currently on IV clindamycin. Notes reviewed D/W Dr Shanta Veloz ok C/O cramping R lower leg/ankle OR plans for later today - removal of tissue workforce development vice president OR C/S Enterobacter and skin [place] No diarrhea No N/V No rash or itching Antibiotics I attest that I obtained, updated or reviewed the home and current medications. Clindamycin Cefepime Current Medications Medications (Trade) Dose Ordered Sig/Angel Route Start Time Stop Time Status Last Admin Lactated Ringer's 1,000 ml @ 30 mls/hr Q24H PRN IV 07/22/17 17:45 07/25/17 17:44 Sodium Chloride 500 ml @ 30 mls/hr [id number] PRN IV 07/22/17 17:45 07/25/17 17:44 (Lopressor) 25 mg PEDIATRIC DENTAL HYGIENIST PRN PO 07/22/17 17:45 07/25/17 17:44 (Betadine 5% Antisepsis Kit) 1 applic PEDIATRIC DENTAL HYGIENIST PRN EACH NARE 07/22/17 17:45 07/25/17 17:44 (Chlorhexidine 2% Cloth) 3 pack PEDIATRIC DENTAL HYGIENIST PRN TOPICAL 07/22/17 17:45 07/25/17 17:44 (NovoLIN R INJ) See Protocol Table ... PEDIATRIC DENTAL HYGIENIST PRN SQ 07/22/17 17:45 07/25/17 17:44 Lactated Ringer's 1,000 ml @ 100 mls/hr Q10H IV 07/22/17 21:00 07/23/17 05:29 Clindamycin Phosphate 600 mg/ Sodium Chloride 104 ml @ 208 mls/hr Q8H IV 07/22/17 22:00 07/25/17 13:28 (Dilaudid Pf Inj) 0.5 mg Q4H PRN IV 07/22/17 20:30 07/23/17 09:27 (Percocet 5-325 Mg) 1 tab Q4H PRN PO 07/22/17 20:30 07/25/17 08:15 (Proair Hfa Inh) 1 puff Q4H PRN INH 07/22/17 20:30 Cefepime HCl 2000 mg/Sodium Chloride 100 ml @ 200 mls/hr Q12H IV 07/24/17 15:00 07/25/17 14:30 (Lactinex) 1 tab TID PO 07/24/17 18:00 07/25/17 12:52 Lines PIV Past Medical History 2 para 2 Breast cancer left Cataracts Osteoporosis CAD Past Surgical History Hysterectomy and salpingo-oophorectomy Carpal tunnel release Mastectomy and placement of a tissue workforce development vice president Allergies: Coded Allergies: amoxicillin (Unverified Allergy, Severe, RASH, HIVES, 06/30/17) azithromycin (Unverified Allergy, Severe, ITCHING, RASH, 06/30/17) Sulfa (Sulfonamide Antibiotics) (Unverified Adverse Reaction, Mild, LIGHTHEADED, 07/22/17) Objective . Vital Signs Date Time Temp Pulse Resp B/P (MAP) Pulse Ox O2 Delivery O2 Flow Rate FiO2 07/25/17 12:00 97.5 83 20 118/71 (87) 97 07/25/17 09:15 18 07/25/17 08:00 96.6 85 16 175/83 (113) 100 07/25/17 00:00 97.4 74 18 112/65 (81) 96 07/24/17 20:00 99.1 90 20 122/70 (87) 96 07/24/17 16:00 98.5 84 16 118/67 (84) 98 . Laboratory Tests Test 07/24/17 18:49 White Blood Count 4.7 TH/MM3 Red Blood Count 4.03 MIL/MM3 Hemoglobin 10.2 GM/DL Hematocrit 31.2 % Mean Corpuscular Volume 77.3 FL Mean Corpuscular Hemoglobin 25.2 PG Mean Corpuscular Hemoglobin Concent 32.6 % Red Cell Distribution Width 14.5 % Platelet Count 237 TH/MM3 Mean Platelet Volume 9.1 FL Neutrophils (%) (Auto) 44.7 % Lymphocytes (%) (Auto) 41.1 % Monocytes (%) (Auto) 8.1 % Eosinophils (%) (Auto) 5.3 % Basophils (%) (Auto) 0.8 % Neutrophils # (Auto) 2.1 TH/MM3 Lymphocytes # (Auto) 1.9 TH/MM3 Monocytes # (Auto) 0.4 TH/MM3 Eosinophils # (Auto) 0.3 TH/MM3 Basophils # (Auto) 0.0 TH/MM3 CBC Comment DIFF FINAL Differential Comment Microbiology Date/Time Source Procedure Growth Status 07/22/17 19:30 Wound Breast Fungal Smear - Final NO FUNGAL ELEMENTS SEEN. Resulted 07/22/17 19:30 Wound Breast Fungal Culture Pending Resulted 07/22/17 19:30 Wound Breast Acid Fast Stain - Final NO ACID FAST BACILLI SEEN Resulted 07/22/17 19:30 Wound Breast Mycobacterial Culture Pending Resulted 07/22/17 19:30 Wound Breast Gram Stain - Final Complete 07/22/17 19:30 Wound Culture - Final Enterobacter Aerogenes Complete Physical Exam GENERAL: awake and alert, not in respiratory distress. SKIN: Warm and dry. No generalized rash, no ecchymoses and no evidence of embolic lesions. HEAD: Atraumatic. Normocephalic. No temporal wasting, or tenderness. EYES: [place] conjunctiva. No petechia or hemorrhage. Pupils equal, round and reactive to light. Extraocular movements full and intact. No scleral icterus. No injection or drainage. EARS, NOSE AND THROAT: Nose without bleeding or purulent nasal discharge. Mucous membranes pink and moist. No oral lesions noted. NECK: Trachea midline. Supple and not tender, no meningeal signs CARDIOVASCULAR: Regular rate and rhythm. No murmurs, rubs or gallops heard RESPIRATORY: Clear to auscultation. Breath sounds equal bilaterally. No rales , wheezing or rhonchi BREASTS: L breast, incision dry, no redness. R breast - larger than L, improving induration at inferior portion, erythema gone, EUGENIE drain in place with serosanguineous fluid, incision dry ABDOMEN: Soft, non-tender, nondistended. Bowel sounds present and normoactive. No guarding. No rebound. No organomegaly. EXTREMITIES: No clubbing, cyanosis, or edema.No joint effusion, has good ROM. No calf tenderness. Well perfused and warm. NEUROLOGICAL: Awake and alert. Cranial nerves grossly intact. Motor grossly within normal limits. PSYCHIATRIC: Normal affect, calm and cooperative. LINE: No evidence of infection Assessment & Plan Remarks IMPRESSION Cellulitis R breast, with infected seroma - C/S with Enterobacter and skin [place] S/P haylee mastectomy and placement of tissue workforce development vice president L breast CA Severe allergy to Bactrim GI intolerance with amoxicillin rash with Azithromycin RECOMMENDATION Continue IV Clinda Change IV cefepime to Rocephin to cover Enterobacter Check CMP - look at electrolytes to see if causing her cramping OR today for removal of tissue workforce development vice president Follow C/S and adjust Abx based on results Monitor progress Explained plan to patient D/W Hillary Li MD Jul 25, 2017 15:56
[2017-07-25 16:00] VITALS: BP 160/73; PULSE 90; RESP 18; TEMP 97.9; O2SAT 97
[2017-07-25] MEDS: cefTRIAXone INJ 2,000 MG in SODIUM CHLORIDE 0.9% INJ 100 ML IV SCH (18:01)
[2017-07-25 20:00] VITALS: BP 144/80; PULSE 84; RESP 20; TEMP 98.7; O2SAT 96
[2017-07-25] MEDS ORDERED: LACTATED RINGER'S 1000 ML IV PRN (20:00)
[2017-07-25] MEDS ORDERED: SODIUM CHLORID 0.9% 500 ML IV PRN (20:00)
[2017-07-25 20:42] LABS: ALT (GPT) 33 U/L (10-53); ANION GAP 6 MEQ/L (5-15); AST (GOT) 23 U/L (15-37); BICARBONATE 29.5 MEQ/L (21.0-32.0); BLOOD UREA NITROGEN 13 MG/DL (7-18); CHLORIDE 105 MEQ/L (98-107); GLOMERULAR FILTRATION RATE 112 ML/MIN (>89); POTASSIUM 3.7 MEQ/L (3.5-5.1); SODIUM (NA) 140 MEQ/L (136-145)
[2017-07-25 20:45] LABS: ALKALINE PHOSPHATASE 64 U/L (45-117); TOTAL BILIRUBIN ADULT 0.2 MG/DL (0.2-1.0)
[2017-07-25] MEDS ORDERED: GENTAMICIN SULFATE 80 MG/2 ML VIAL ONE (22:35)
--- NOTE | 2017-07-25 23:18 | PD.OP ---
Operative Report Right breast reconstruction periprosthetic infection Postoperative Diagnosis: Right breast reconstruction periprosthetic infection Patient for removal Bilateral Breast recon expanders and Allomax grafts Procedure: removal Bilateral Breast recon expanders and Allomax grafts debridement both breast cavities Anesthesia: gen Surgeon: Mario Womack Supervisor Industrial Garment(s): rn Resident Surgeon: none Operation and Findings: see dictation Mario Womack MD Jul 25, 2017 23:18
[2017-07-25] MEDS ORDERED: *ONDANSETRON 4 MG VIAL PERIprocedural Use ONLY ONE (23:36)
[2017-07-25] MEDS ORDERED: *morphine SULFATE 8 MG/ML PERIprocedure ONLY ONE (23:36)
[2017-07-25] MEDS ORDERED: DO NOT ADM ANY ANTICOAGULANT DRUGS PRN (23:45)
[2017-07-26] VITALS (7 sets, daily range): BP systolic 94–118; BP diastolic 56–63; PULSE 81–95; RESP 18; TEMP 97.3–98.5; O2SAT 96–100
[2017-07-26] MEDS ORDERED: *morphine SULFATE 8 MG/ML PERIprocedure ONLY ONE (00:12)
[2017-07-26] MEDS: LACTATED RINGER'S 1000 ML INJ 1,000 ML IV SCH ×3 (00:38→11:51)
[2017-07-26] MEDS: HYDROmorphone HCL PF 0.5 MG/0.5 ML SYRINGE IV PRN ×4 (04:29→21:55)
[2017-07-26] MEDS: CLINDAMYCIN 600 MG/NS 100 ML IV SCH ×6 (04:30→21:55)
[2017-07-26] MEDS: LACTOBACILLUS ACIDOPHILUS TAB PO SCH ×3 (08:41→17:51)
--- NOTE | 2017-07-26 12:59 | PD.PLAS.PN ---
Subjective Remarks Patient doing well, stable, afebrile Pain mild to moderate - ok with Rx Had some mild chills feeling earlier but no fever. Not feeling weak Both breast flaps good, EUGENIE active - serosanguineous. Discussed IV and oral antibiotics - wants to get more IV for a day or two OK to plan discharge Friday morning. Will have Dr. Queen decide further antibiotic management and a referral to Dr. Davis in [facility]. Vital Signs Date Time Temp Pulse Resp B/P (MAP) Pulse Ox O2 Delivery O2 Flow Rate FiO2 07/26/17 12:00 98.5 95 18 105/59 (74) 96 07/26/17 10:57 100 21 07/26/17 10:40 18 07/26/17 08:00 97.3 85 18 97/56 (70) 96 07/26/17 04:00 98.3 87 18 109/60 (76) 96 07/26/17 00:15 66 11 129/62 (84) 96 Room Air 07/26/17 00:00 78 19 130/57 (81) 94 Room Air 07/25/17 23:45 69 15 148/70 (96) 100 Room Air 07/25/17 23:35 97.8 78 16 167/82 (110) 100 Room Air 07/25/17 20:00 98.7 84 20 144/80 (101) 96 07/25/17 16:00 97.9 90 18 160/73 (102) 97 I/O 07/25/17 07/25/17 07/25/17 07/26/17 07/26/17 07/26/17 07:00 15:00 23:00 07:00 15:00 23:00 Intake Total 584 ml 480 ml 1790 ml Output Total 1800 ml 700 ml 2100 ml 25 ml Balance -1216 ml -220 ml -310 ml -25 ml Intake Oral 480 ml 480 ml 0 ml IV Total 104 ml 890 ml Other 900 ml Output Urine Total 1800 ml 700 ml 1950 ml Drainage Total 100 ml 25 ml Estimated Blood Loss 50 ml # Bowel Movements 0 0 0 Laboratory Tests Test 07/25/17 19:01 Blood Urea Nitrogen 13 Creatinine 0.56 Random Glucose 93 Total Protein 6.9 Albumin 3.2 Calcium Level 9.2 Alkaline Phosphatase 64 Aspartate Amino Transf (AST/SGOT) 23 Alanine Aminotransferase (ALT/SGPT) 33 Total Bilirubin 0.2 Sodium Level 140 Potassium Level 3.7 Chloride Level 105 Carbon Dioxide Level 29.5 Anion Gap 6 Estimat Glomerular Filtration Rate 112 Date/Time Source Procedure Growth Status 07/25/17 00:00 Abscess Breast Fungal Smear - Final NO FUNGAL ELEMENTS SEEN. Resulted 07/25/17 00:00 Abscess Breast Fungal Culture Pending Resulted Result Diagram: 07/24/17 1849 07/25/17 1901 Mario Womack MD Jul 26, 2017 12:59
[2017-07-26] MEDS: cefTRIAXone INJ 2,000 MG in SODIUM CHLORIDE 0.9% INJ 100 ML IV SCH (16:23)
[2017-07-27 00:16] VITALS: BP 133/75; PULSE 89; RESP 18; TEMP 97.7; O2SAT 97
[2017-07-27] MEDS: HYDROmorphone HCL PF 0.5 MG/0.5 ML SYRINGE IV PRN (04:12)
[2017-07-27] MEDS: CLINDAMYCIN 600 MG/NS 100 ML IV SCH ×6 (04:12→22:10)
[2017-07-27] MEDS: LACTATED RINGER'S 1000 ML INJ 1,000 ML IV SCH ×3 (04:12→21:00)
[2017-07-27 08:00] VITALS: BP 140/80; PULSE 86; RESP 20; TEMP 97.8; O2SAT 97
[2017-07-27] MEDS: LACTOBACILLUS ACIDOPHILUS TAB PO SCH ×3 (09:00→17:19)
--- NOTE | 2017-07-27 09:13 | HHI.IDPN ---
Subjective Subjective Remarks Patient is a 56-year-old female, diagnosed to have breast cancer, underwent definitive surgery the end of June, admitted to the hospital for further evaluation of swelling on her right breast. The original breast cancer was on the left side, they did surgery on both breast, and placed a tissue district claims manager. When she was discharged she had drains in both breasts. The drain was removed after about 7-10 days. About a week after the surgery, the patient was placed on Keflex by the surgeon. She has been taking Keflex since up until the time of admission. The drains were removed, patient has had intermittent drainage from the drain sites especially on the right side. A week prior to admission, she developed swelling and redness on her right breast. It was being monitored closely, and it was decided to bring the patient for further evaluation and treatment. She had one episode of low-grade temps during this time. Since admission she has not been febrile. White count is normal. Patient underwent drainage of seroma yesterday. Gram stain of the fluid did not show any organism , and culture is negative after 24 hours. Infectious disease consultation has been requested to evaluate the patient. Patient received Vanco perioperatively, and she is currently on IV clindamycin. Notes reviewed [place] ok Had removal of both tissue district claims manager late last night [address], serosanguineous fluid New C/S pending, G/S rare WBC, no organism seen OR C/S Enterobacter and skin [place] No diarrhea No N/V No rash or itching Antibiotics I attest that I obtained, updated or reviewed the home and current medications. Clindamycin Cefepime Current Medications Medications (Trade) Dose Ordered Sig/Angel Route Start Time Stop Time Status Last Admin Lactated Ringer's 1,000 ml @ 100 mls/hr Q10H IV 07/22/17 21:00 07/27/17 04:12 Clindamycin Phosphate 600 mg/ Sodium Chloride 104 ml @ 208 mls/hr Q8H IV 07/22/17 22:00 07/27/17 04:12 (Dilaudid Pf Inj) 0.5 mg Q4H PRN IV 07/22/17 20:30 07/27/17 04:12 (Percocet 5-325 Mg) 1 tab Q4H PRN PO 07/22/17 20:30 07/25/17 08:15 (Proair Hfa Inh) 1 puff Q4H PRN INH 07/22/17 20:30 (Lactinex) 1 tab TID PO 07/24/17 18:00 07/26/17 17:51 Ceftriaxone Sodium 2000 mg/ Sodium Chloride 100 ml @ 200 mls/hr Q24H IV 07/25/17 16:00 07/26/17 16:23 Lines PIV Past Medical History 2 para 2 Breast cancer left Cataracts Osteoporosis CAD Past Surgical History Hysterectomy and salpingo-oophorectomy Carpal tunnel release Mastectomy and placement of a tissue district claims manager Allergies: Coded Allergies: amoxicillin (Unverified Allergy, Severe, RASH, HIVES, 06/30/17) azithromycin (Unverified Allergy, Severe, ITCHING, RASH, 06/30/17) Sulfa (Sulfonamide Antibiotics) (Unverified Adverse Reaction, Mild, LIGHTHEADED, 07/22/17) Objective . Vital Signs Date Time Temp Pulse Resp B/P (MAP) Pulse Ox O2 Delivery O2 Flow Rate FiO2 07/27/17 00:16 97.7 89 18 133/75 (94) 97 07/26/17 20:56 98 21 07/26/17 20:47 98.4 81 18 118/63 (81) 99 07/26/17 16:45 18 07/26/17 16:00 97.9 92 18 94/63 (73) 98 07/26/17 12:00 98.5 95 18 105/59 (74) 96 07/26/17 10:57 100 21 . Laboratory Tests Test 07/25/17 19:01 Blood Urea Nitrogen 13 MG/DL Creatinine 0.56 MG/DL Random Glucose 93 MG/DL Total Protein 6.9 GM/DL Albumin 3.2 GM/DL Calcium Level 9.2 MG/DL Alkaline Phosphatase 64 U/L Aspartate Amino Transf (AST/SGOT) 23 U/L Alanine Aminotransferase (ALT/SGPT) 33 U/L Total Bilirubin 0.2 MG/DL Sodium Level 140 MEQ/L Potassium Level 3.7 MEQ/L Chloride Level 105 MEQ/L Carbon Dioxide Level 29.5 MEQ/L Anion Gap 6 MEQ/L Estimat Glomerular Filtration Rate 112 ML/MIN Microbiology Date/Time Source Procedure Growth Status 07/25/17 00:00 Abscess Breast Fungal Smear - Final NO FUNGAL ELEMENTS SEEN. Resulted 07/25/17 00:00 Abscess Breast Fungal Culture Pending Resulted 07/25/17 00:00 Abscess Breast Acid Fast Stain Pending Received 07/25/17 00:00 Abscess Breast Mycobacterial Culture Pending Received 07/25/17 00:00 Abscess Breast Gram Stain - Final Resulted 07/25/17 00:00 Abscess Breast Wound Culture Pending Resulted 07/25/17 00:00 Abscess Breast Fungal Smear - Final NO FUNGAL ELEMENTS SEEN. Resulted 07/25/17 00:00 Abscess Breast Fungal Culture Pending Resulted 07/25/17 00:00 Abscess Breast Acid Fast Stain Pending Received 07/25/17 00:00 Abscess Breast Mycobacterial Culture Pending Received 07/25/17 00:00 Abscess Breast Gram Stain - Final Resulted 07/25/17 00:00 Abscess Breast Wound Culture Pending Resulted Physical Exam GENERAL: awake and alert, not in respiratory distress. SKIN: Warm and dry. No generalized rash HEAD: Atraumatic. Normocephalic. No temporal wasting, or tenderness. EYES: [place] conjunctiva. No petechia or hemorrhage. No scleral icterus. No injection or drainage. EARS, NOSE AND THROAT: Nose without bleeding or purulent nasal discharge. Mucous membranes pink and moist. No oral lesions noted. NECK: Trachea midline. Supple and not tender, no meningeal signs CARDIOVASCULAR: Regular rate and rhythm. No murmurs, rubs or gallops heard RESPIRATORY: Clear to auscultation. Breath sounds equal bilaterally. No rales , wheezing or rhonchi BREASTS: Dry intact dressing to both chest wall incisions, [address], serosanguineous fluid, more drainage from R than from L ABDOMEN: Soft, non-tender, nondistended. Bowel sounds present and normoactive. No guarding. No rebound. No organomegaly. EXTREMITIES: No clubbing, cyanosis, or edema.No joint effusion, has good ROM. No calf tenderness. Well perfused and warm. NEUROLOGICAL: Non-focal. PSYCHIATRIC: Normal affect, calm and cooperative. LINE: No evidence of infection Assessment & Plan Remarks IMPRESSION Cellulitis R breast, with infected seroma - C/S with Enterobacter and skin [place] S/P removal of bilateral tissue expanders S/P haylee mastectomy and placement of tissue district claims manager L breast CA Severe allergy to Bactrim GI intolerance with amoxicillin Rash with Azithromycin RECOMMENDATION Continue IV Clinda Continue Rocephin to cover Enterobacter Start po Levaquin tomorrow - if C/S negative, should be able to use oral levaquin on D/C and give 14 days Can follow-up with Dr Novak if plastics want ID followup Follow C/S Monitor progress Explained plan to patient Hillary Queen MD Jul 27, 2017 09:13
[2017-07-27] MEDS ORDERED: LEVA750T9 PO (09:37)
--- NOTE | 2017-07-27 09:46 | PD.PLAS.PN ---
Subjective Remarks Patient doing much better No fever Not tired or malaise Ambulating well OK to discharge tomorrow am with one dose of Levaquin by mouth as per Dr. Miranda Will see her back in [facility] on Friday Vital Signs Date Time Temp Pulse Resp B/P (MAP) Pulse Ox O2 Delivery O2 Flow Rate FiO2 07/27/17 00:16 97.7 89 18 133/75 (94) 97 07/26/17 20:56 98 21 07/26/17 20:47 98.4 81 18 118/63 (81) 99 07/26/17 16:45 18 07/26/17 16:00 97.9 92 18 94/63 (73) 98 07/26/17 12:00 98.5 95 18 105/59 (74) 96 07/26/17 10:57 100 21 I/O 07/26/17 07/26/17 07/26/17 07/27/17 07/27/17 07/27/17 07:00 15:00 23:00 07:00 15:00 23:00 Intake Total 1790 ml 600 ml 104 ml 1104 ml Output Total 2100 ml 25 ml 13 ml 1740 ml Balance -310 ml 575 ml 91 ml -636 ml Intake Oral 0 ml 600 ml IV Total 890 ml 104 ml 1104 ml Other 900 ml Output Urine Total 1950 ml 1725 ml Drainage Total 100 ml 25 ml 13 ml 15 ml Estimated Blood Loss 50 ml # Voids 4 # Bowel Movements 0 0 Date/Time Source Procedure Growth Status 07/25/17 00:00 Abscess Breast Fungal Smear - Final NO FUNGAL ELEMENTS SEEN. Resulted 07/25/17 00:00 Abscess Breast Fungal Culture Pending Resulted Result Diagram: 07/24/17 1849 07/25/17 190 Mario Womack MD Jul 27, 2017 09:46
[2017-07-27 12:00] VITALS: BP 131/67; PULSE 80; RESP 16; TEMP 98.4; O2SAT 96
[2017-07-27 16:00] VITALS: BP 124/70; PULSE 94; RESP 17; TEMP 98.6; O2SAT 97
[2017-07-27] MEDS: oxyCODONE/ACETAMINOPHEN 5 MG/325 MG TAB PO PRN ×2 (18:03→22:01)
[2017-07-27] MEDS: cefTRIAXone INJ 2,000 MG in SODIUM CHLORIDE 0.9% INJ 100 ML IV SCH (18:52)
[2017-07-27 20:00] VITALS: BP 130/74; PULSE 87; RESP 16; TEMP 98.7; O2SAT 99
[2017-07-28 00:21] VITALS: BP 126/70; PULSE 83; RESP 16; TEMP 97.6; O2SAT 98
[2017-07-28] MEDS: CLINDAMYCIN 600 MG/NS 100 ML IV SCH ×2 (05:03)
[2017-07-28] MEDS: LACTATED RINGER'S 1000 ML INJ 1,000 ML IV SCH (05:04)
[2017-07-28] MEDS: oxyCODONE/ACETAMINOPHEN 5 MG/325 MG TAB PO PRN (05:05)
[2017-07-28 08:00] VITALS: BP 144/80; PULSE 82; RESP 20; TEMP 97.4; O2SAT 98
[2017-07-28] MEDS ORDERED: LEVOFLOXACIN 750 MG TAB PO SCH (09:00)
[2017-07-28] MEDS: LACTOBACILLUS ACIDOPHILUS TAB PO SCH (09:30)
[2017-07-28 09:39] VITALS: O2SAT 98
--- NOTE | 2017-07-29 12:02 | MP ---
cc: DEBBY WOMACK M.D. DATE OF SURGERY: 07/25/2017 PREOPERATIVE DIAGNOSIS Status post bilateral mastectomy and tissue tunnel elastic operator zigzag reconstruction with infected prosthesis on the right side. POSTOPERATIVE DIAGNOSIS Status post bilateral mastectomy and tissue tunnel elastic operator zigzag reconstruction with infected prosthesis on the right side. OPERATION Bilateral breast tissue tunnel elastic operator zigzag, AlloMax graft removal and debridement of both breast pockets. SURGEON Dr. Womack. ANESTHESIA General. INDICATION A 56-year-old white female with a recent history of bilateral mastectomies and bilateral breast tissue expansion approximately a month ago. She had routine postoperative care and was noted to have some areas of skin and superficial necrosis on both sides. The breast cancer is on the left side. These areas were being observed for secondary healing. After the drains were removed, a few days down the line, she developed redness and swelling of the right breast and a small patchy necrosis on the inframammary crease area. She was taken to the operating room to drain the seroma and remove the necrotic area a few days back. The culture taken from the seroma has shown Enterobacter aeruginosa sensitive to all antibiotics. She is being also helped by Dr. Queen of Infectious Disease. Once the culture results were known the recommendation for removal of the right tunnel elastic operator zigzag was brought forward both with the Infectious Disease discussion and with the patient. The patient also wanted to consider removing both sides over the past few days and she has decided finally to go ahead and remove both sides as well. She understands that both areas need to heal completely before any further reconstruction effort may be attempted and that the skin envelope will not be smooth and expanded as it is currently and that may pose additional issues to deal with in the long run. She did not have any chemotherapy or radiation therapy. PROCEDURE The patient was brought to the operating room, was given a supine position and anesthesia was started. Prep and drape was done. She is already on multiple IV antibiotics. The right side was first covered attending the left side first. The Prolene sutures were removed. The Vicryl sutures were removed. The skin flaps were gently. The AlloMax was noted to be half way integrated in the flap already. It was incised, the tunnel elastic operator zigzag was removed. The AlloMax was gently from the flap and the chest wall side and removed completely. The remaining breast pocket actually looked very clean and it was irrigated clean with antibiotic solution containing gentamicin. A drain was placed and it was closed in two layers with Vicryl and Prolene. The skin flap does have thin areas, particularly in the upper outer quadrant; this is the cancer site. The area was then covered with sterile towels and isolated. The surgery was continued on the right side. A similar removal of the skin sutures, the Vicryl sutures and the AlloMax was carried out. The tunnel elastic operator zigzag was also removed and the cavity was scrubbed copiously clean with a Betadine scrub brush and soap solution and irrigated out. Hemostasis was completed. The cavity was finally irrigated with gentamicin solution as well. A drain was placed and the cavity was closed in two layers with Vicryl and Prolene. The drains were secured and activated. The patient remained stable through the procedure. Intraoperative blood loss 25-30 cc. No complications. signed, not fully reviewed MD JAMES Coughlin/JORY /7:48 PM /11:37 AM [id number]
== END 2017-07-28 10:56 | disposition home or self-care (01) | DRG 908 ==
LOC: HSDC 17:15 → HSDI 17:17 → HSDC 19:59 → N07A 20:00 → N07B 21:41
PROVIDERS: ADMIT Plastic Surgery; ATTEND Plastic Surgery
PROC: 0H9T00Z Drainage of Right Breast with Drainage Device, Open Approach (ICD-10-PCS; 2017-07-22)
PROC: 0HPT0NZ Removal of Tissue Expander from Right Breast, Open Approach (ICD-10-PCS; 2017-07-25)
PROC: 0JD60ZZ Extraction of Chest Subcutaneous Tissue and Fascia, Open Approach (ICD-10-PCS; 2017-07-25)
PROC: 0JD60ZZ Extraction of Chest Subcutaneous Tissue and Fascia, Open Approach (ICD-10-PCS; 2017-07-25)
PROC: 0HPU0NZ Removal of Tissue Expander from Left Breast, Open Approach (ICD-10-PCS; principal; 2017-07-25 22:07)
DX: L76.34 Postprocedural seroma of skin and subcutaneous tissue following other procedure (principal); T85.79XA Infection and inflammatory reaction due to other internal prosthetic devices, implants and grafts, initial encounter; L76.82 Other postprocedural complications of skin and subcutaneous tissue; H26.9 Unspecified cataract; B96.89 Other specified bacterial agents as the cause of diseases classified elsewhere; I25.10 Atherosclerotic heart disease of native coronary artery without angina pectoris; N61.0 Mastitis without abscess; M81.0 Age-related osteoporosis without current pathological fracture; M79.7 Fibromyalgia; M17.0 Bilateral primary osteoarthritis of knee; Z90.13 Acquired absence of bilateral breasts and nipples; Z88.2 Allergy status to sulfonamides; Z85.3 Personal history of malignant neoplasm of breast; Y83.4 Other reconstructive surgery as the cause of abnormal reaction of the patient, or of later complication, without mention of misadventure at the time of the procedure; Y81.8 Miscellaneous general- and plastic-surgery devices associated with adverse incidents, not elsewhere classified
CPT/HCPCS: 80053; 85025; 86403; 87015; 87070; 87077; 87102; 87116; 87186; 87205; 87206; 93005; J1170; J0692; J0696; J1580; J2250; J2270; J2370; J2405; J2710; J3010; J3370; J7120